=== PATIENT | male | born 1975 | race Two or more races ===

== ENCOUNTER 2023-12-25 10:41 | Emergency (ER) | payer MEDICAID, OTHER ==
[~2023-12-25] VITALS: Ht 167.6 cm; Wt 82.8 kg
[2023-12-25 11:28] LABS: Basophils # (auto) 0 10 ^3/uL (0-0.2); Basophils % (auto) 0.2 % (0.0-2.0); Eosinophils # (auto) 0.1 10 ^3/uL (0-0.8); Eosinophils % (auto) 0.9 % (0.0-7.0); Monocytes # (auto) 0.6 10 ^3/uL (0-1.3); Neutrophils % (auto) 69.9 % (37.0-80.0); Red Blood Cells 3.91 10^6/uL (4.5-5.90); Red Cell Distribution Width 18.6 % (11.8-14.3)
[2023-12-25 11:31] LABS: Hematocrit 31.4 % (41.0-53.0); Hemoglobin 9.8 g/dL (13.5-17.5); Lymphocytes # (auto) 1.4 10 ^3/uL (0.4-5.4); Lymphocytes % (auto) 20.3 % (10.0-50.0); Mean Corpuscular Hemoglobin 25.1 pg (28.0-32.0); Mean Corpuscular Hgb Conc. 31.3 g/dL (32.0-36.0); Mean Corpuscular Volume 80.4 fL (80.0-100.0); Monocytes % (auto) 8.7 % (0.0-12.0); Neutrophils # (auto) 4.8 10 ^3/uL (1.6-8.6); White Blood Cell 6.9 10^3/uL (4.4-10.8)
[2023-12-25 11:45] LABS: INR 0.98 (0.9-1.15); Prothrombin Time 10.4 sec (9.3-11.8)
[2023-12-25 12:05] VITALS: BP 128/87; PULSE 87; RESP 18; TEMP 98.7; O2SAT 98
[2023-12-25] MEDS: LIDOCAINE 1% (LOCAL ANESTH.) PF 5ml SDV ID ONE (15:48)
[2023-12-25] MEDS ORDERED: SODIUM CHLOR 0.9% PF (SALINE LOCK) 10ML VIAL/SYR IV SCH (22:00)
== END 2023-12-25 16:38 | disposition home or self-care (01) ==
LOC: ER 10:41
DX: R56.9 Unspecified convulsions (principal); I10 Essential (primary) hypertension; Z45.2 Encounter for adjustment and management of vascular access device; Z79.899 Other long term (current) drug therapy; Z79.01 Long term (current) use of anticoagulants
CPT/HCPCS: 36415; 36569; 71045; 85025; 85610; 85730; 99285; C1751; J7050

== ENCOUNTER 2024-02-16 15:36 | Emergency (ER) | payer MEDICAID | END 2024-02-16 16:28 | disposition left against medical advice (07) | LOC: ER 15:36 | DX: R56.9 Unspecified convulsions (principal); Z53.21 Procedure and treatment not carried out due to patient leaving prior to being seen by health care provider ==

== ENCOUNTER 2025-02-07 10:16 | Emergency (ER) | payer MEDICAID ==
[~2025-02-07] VITALS: Ht 167.6 cm; Wt 83.0 kg
--- NOTE | 2025-02-07 10:59 | ED.PDOC ---
HPI Comments HPI: Poor Historian. 49-year-old male presents to emergency department for multiple complaints. He has history of chronic abdominal pain that is unchanged however he is here for chest pressure and some mild shortness of breath with underlying anxiety. Symptoms are intermittent. No particular alleviating or precipitating factors. Patient was recently here admitted to the hospital and discharged for port placement of his anterior chest wall. Patient is on Rocephin Patient follows with pain management state that he takes Dilaudid 2 mg 3 times a day. He has missed is Dilaudid for the last week he said because he missed his appointment with his pain management doctor. Patient also receives TPN through his port cath. Past Medical History: Neuropathy, hyperlipidemia, seizure, hypertension, abdominal cancer. Past Surgical History: Abdominal surgery, left ankle surgery, Port-A-Cath placement No known drug allergies. REVIEW OF SYSTEMS: CONSTITUTIONAL: Denies acute: fever, diaphoresis, chills, HEAD: Denies acute: headache, photophobia Eyes: Denies acute: Double vision, vision loss, eye pain, eye discharge. EARS: Denies acute: tinnitus, hearing loss, ear discharge, ear pain, THROAT: Denies acute: sore throat, swelling, difficulty swallowing , pain with swallowing, change in voice. NECK: Denies acute: neck pain, neck swelling, stiff neck. HEART: Denies acute : , palpitations, LUNGS: Denies acute: wheezing, cough, hemoptysis ABDOMEN: Denies acute: abdominal pain, Nausea, Vomiting, diarrhea, melena , hematemesis, hematochezia SKIN: Denies acute: rash, redness, lesions, itchiness. EXTREMITIES: Denies acute: calf pain, numbness, tingling, weakness, denies pain in extremity. Denies acute: Low back pain. Neuro: Denies acute: focal neurological deficit, motor or sensory focal neurological deficit, tremors, seizure like activity, confusion, dizziness, change in mental status, loss of bowel or bladder function, cauda equina like symptoms. : Denies acute: dysuria, hematuria, flank pain, increase in urinary frequency. PSYCH: Denies acute: hallucination, suicidal ideation, homicidal ideation. FEMALE: Denies acute: abnormal vaginal bleeding, foul odor, unusual discharge. PHYSICAL EXAM: General: ----mild to moderate----acute distress, awake and alert. Appears anxious Head: normocephalic, atraumatic. Neck: supple, trachea is midline, no swelling. Throat: Normal phonation. Eyes:, no erythema, no purulent discharge, no proptosis, no icterus. Heart: regular rate, regular rhythm, no significant murmur appreciated. Lungs: no apparent respiratory distress, Able to speak in full sentences. No wheezing, no rhonchi, no crackles. No stridors Clear to auscultation bilaterally. Abdomen: non tender to palpation, non distended, soft, no guarding, no rebound, + bowel sounds. Neuro: Awake, Alert, oriented to name, self, situation, follows commands GCS=15. Speech is normal. Skin: no petechia, no purpura, no cyanosis, non-pale, not jaundice. Lower extremities: --no - Pitting edema no deformity, no focal swelling, no calf TTP. Makes eye contact. moves all four extremities. Face: no apparent facial droop. Ambulating in the ED independently. ED COURSE: DISCLAIMER: This medical document was created using an electronic medical record system with voice recognition software and computerized dictation system. Although this document has been carefully reviewed, there might still be some phonetic and typographical errors. Occasional wrong-word or "sound-alike" substitutions may have occurred due to the inherent limitations of voice recognition software. These areas are purely typographical due to imperfections of the software programs and do not reflect any compromise in the patient's medical care. Please read the chart carefully and recognize, using context, where these substitutions have occurred. Chief Complaint: Shortness of Breath Time Seen by MD: 10:29 Primary Care Provider: unknown Allergies: Coded Allergies: NO KNOWN ALLERGIES (Unverified , 02/07/25) Information Source: Patient Past Medical History PAST MEDICAL HISTORY: Cancer, HTN, Seizures Family History Family History: Unknown Social History Smoker: Non-Smoker Alcohol: Denies ETOH Use Drugs: Denies Drug Use Lives In: Home X-Ray, Labs, Meds, VS Vital Signs Date Time Temp Pulse Resp B/P (MAP) Pulse Ox O2 Delivery O2 Flow Rate FiO2 02/07/25 14:18 108 19 96 Room Air* 0 21 02/07/25 14:18 98.0 108 20 136/93 (107) 98 98.0 02/07/25 14:07 108 20 136/93 02/07/25 12:27 99.2 108 20 138/90 (106) 98 99.2 02/07/25 12:27 108 02/07/25 10:30 99.3 106 20 158/91 (113) 99 99.3 02/07/25 10:30 107 Lab Test 02/07/25 12:39 02/07/25 12:31 02/07/25 11:10 02/07/25 11:09 Range/Units D-Dimer, Quantitative 0.35 0.0-0.49 mg/L FEU Troponin I High Sensitivity < 3 L < 3 L </=54 ng/L White Blood Count 6.2 4.4-10.8 10^3/uL Red Blood Count 4.44 L 4.5-5.90 10^6/uL Hemoglobin 9.1 L 13.5-17.5 g/dL Hematocrit 30.7 L 41.0-53.0 % Mean Corpuscular Volume 69.3 L 80.0-100.0 fL Mean Corpuscular Hemoglobin 20.5 L 28.0-32.0 pg Mean Corpuscular Hemoglobin Concent 29.5 L 32.0-36.0 g/dL Red Cell Distribution Width 18.7 H 11.8-14.3 % Platelet Count 388 140-450 10^3/uL Mean Platelet Volume 8.0 6.9-10.8 fL Neutrophils (%) (Auto) 80.4 H 37.0-80.0 % Lymphocytes (%) (Auto) 13.9 10.0-50.0 % Monocytes (%) (Auto) 5.1 0.0-12.0 % Eosinophils (%) (Auto) 0.5 0.0-7.0 % Basophils (%) (Auto) 0.1 0.0-2.0 % Neutrophils # (Auto) 5.0 1.6-8.6 10 ^3/uL Lymphocytes # (Auto) 0.9 0.4-5.4 10 ^3/uL Monocytes # (Auto) 0.3 0-1.3 10 ^3/uL Eosinophils # (Auto) 0 0-0.8 10 ^3/uL Basophils # (Auto) 0 0-0.2 10 ^3/uL Nucleated Red Blood Cells 0.2 % Lactic Acid Level 1.2 0.4-2.0 mmol/L B-Type Natriuretic Peptide 33.15 0-100 pg/mL Sodium Level 140 136-145 mmol/L Potassium Level 3.4 L 3.5-5.1 mmol/L Chloride Level 109 H 98-107 mmol/L Carbon Dioxide Level 20 20-31 mmol/L Anion Gap 11 5-15 Blood Urea Nitrogen 8 L 9-23 mg/dL Creatinine 0.71 0.700-1.30 mg/dL Glomerular Filtration Rate Calc 113 >90 mL/min BUN/Creatinine Ratio 11.3 10.0-20.0 Serum Glucose 139 H 74-106 mg/dL Calcium Level 10.3 8.7-10.4 mg/dL Total Bilirubin 0.3 0.2-1.0 mg/dL Aspartate Amino Transferase (AST) 12 L 13-40 U/L Alanine Aminotransferase (ALT) 9 7-40 U/L Alkaline Phosphatase 137 H 46-116 U/L Total Protein 7.5 5.7-8.2 g/dL Albumin 5.1 H 3.2-4.8 g/dL Current Medications Medications (Trade) Dose Ordered Sig/Deb Route Start Time Stop Time Status Last Admin Lorazepam (Ativan Inj) 1 mg ONCE ONCE IV 02/07/25 12:45 02/07/25 12:46 DC 02/07/25 13:36 Hydromorphone HCl (Dilaudid Injection) 1 mg ONCE ONCE IV 02/07/25 13:30 02/07/25 14:00 DC 02/07/25 14:07 [place] [id number] Ph: [phone] DIAGNOSTIC IMAGING Diagnostic Imaging Report : [id number] Signed PATIENT: COLLETTE POLO JR ACCT: [id number] UNIT: [id number] : 1975 LOC: ER ROOM / BED: / AGE / SEX: 49 / M ADM STATUS: REG ER SERVICE 1034 ORDERING PHYSICIAN: MARTI BLACKBURN DO PROCEDURE(s): CXRP - CHEST PORTABLE REASON: SOB ORDER NUMBER(s): [id number], ACCESSION NUMBER(s): [id number] EXAM: XY CHEST PORTABLE HISTORY: SOB COMPARISON: XY CHEST PORTABLE on DOS: 12/25/23. For reasons unknown, chest x-ray dated 01/23/2025 was not made available in the PACS system for viewing. TECHNIQUE: Portable AP view of the chest was performed. FINDINGS: There is a right chest port-A-Cath with its tip in the SVC -RA junction. No pneumothorax, consolidative infiltrates, or pulmonary edema. The heart is borderline enlarged. IMPRESSION: No acute intrathoracic process. ATED BY: AILYN ASENCIO MD DICTATED DATE/TIME: 02/07/25 110 SIGNED BY: AILYN ASENCIO MD SIGNED DATE/TIME: 02/07/25 1106 CC: SEPSIS Sepsis Screen Physician Orders [employer] (02/07/25 ) Chest Portable (02/07/25 10:34) Vital Signs Date Time Temp Pulse Resp B/P (MAP) Pulse Ox O2 Delivery O2 Flow Rate FiO2 02/07/25 14:18 108 19 96 Room Air* 0 21 02/07/25 14:18 98.0 108 20 136/93 (107) 98 98.0 02/07/25 14:07 108 20 136/93 02/07/25 12:27 99.2 108 20 138/90 (106) 98 99.2 02/07/25 12:27 108 02/07/25 10:30 99.3 106 20 158/91 (113) 99 99.3 02/07/25 10:30 107 Laboratory Tests Test 02/07/25 11:10 Lactic Acid Level 1.2 mmol/L (0.4-2.0) White Blood Count 6.2 10^3/uL (4.4-10.8) Medications Medications Dose Ordered Sig/Deb Route Start Time Stop Time Status Last Admin Dose Admin Hydromorphone HCl 1 mg ONCE ONCE IV 02/07/25 13:30 02/07/25 14:00 DC 02/07/25 14:07 Lorazepam 1 mg ONCE ONCE IV 02/07/25 12:45 02/07/25 12:46 DC 02/07/25 13:36 Departure 1 Departure Time of Disposition: 14:13 Impression: Primary Impression: Chronic pain syndrome Additional Impressions: Chest pain Anxiety Disposition: 01 HOME / SELF CARE / HOMELESS Condition: Stable Additional Instructions: Additional instructions: You MUST follow-up with your primary care/family doctor in 1 to 2 days. If you are unable to see your primary care/family doctor, please return to our emergency room for re-assessment and re-evaluation in 1 to 2 days. Return to the emergency room here in our facility or to the nearest ER [facility] if your symptoms change or worsen. CONSULTATIONS: you MUST Follow-up for consultation as soon as possible with: --pain management in 1-2 days. Please call for appointment cardiology 1-2 days. Please call for appointment. You MUST call the consultants office yourself to make an appointment. You may need to arrange that through your insurance and/or your primary/family doctor. If you are unable to see the healthcare risk control consultant in 1 to 2 days, you must return to our emergency room (or any other ER of your choice) for re-assessment and re- evaluation. Adequate fluid hydration. Discharged With: Self I personally scribed for MARTI BLACKBURN DO ([email or web address]) on 02/07/25 at 17:03. Electronically submitted by Luis Lackey ([email or web address]). MARTI BLACKBURN DO Feb 07, 2025 10:59
--- NOTE | 2025-02-07 11:09 | DVH ---
EXAM: XY CHEST PORTABLE HISTORY: SOB COMPARISON: XY CHEST PORTABLE on DOS: 12/25/23. For reasons unknown, chest x-ray dated 01/23/2025 was n ot made available in the PACS system for viewing. TECHNIQUE: Portable AP view of the chest was performed. FINDINGS: There is a right chest port-A-Cath with its tip in the SVC -RA junction. No pneumothorax, consolidati ve infiltrates, or pulmonary edema. The heart is borderline enlarged. IMPRESSION: No acute intrathoracic process.
[2025-02-07 11:41] LABS: Hematocrit 30.7 % (41.0-53.0); Hemoglobin 9.1 g/dL (13.5-17.5); Mean Corpuscular Hemoglobin 20.5 pg (28.0-32.0); Mean Corpuscular Volume 69.3 fL (80.0-100.0); Nucleated Red Blood Cells % 0.2 %
[2025-02-07 11:46] LABS: Anion Gap 11 (5-15); BUN/Creatinine Ratio 11.3 (10.0-20.0); Calcium 10.3 mg/dL (8.7-10.4); Sodium 140 mmol/L (136-145); Total Protein 7.5 g/dL (5.7-8.2)
[2025-02-07 11:47] LABS: Bilirubin, Total 0.3 mg/dL (0.2-1.0)
[2025-02-07 11:51] LABS: Alanine Aminotransferase 9 U/L (7-40); Albumin 5.1 g/dL (3.2-4.8); Alkaline Phosphatase 137 U/L (46-116); Blood Urea Nitrogen 8 mg/dL (9-23); Carbon Dioxide 20 mmol/L (20-31); Chloride 109 mmol/L (98-107); Glucose 139 mg/dL (74-106); Potassium 3.4 mmol/L (3.5-5.1)
--- NOTE | 2025-02-07 12:14 | ECG ---
[facility] Test Date: 2025-02-07 Test Time: 10:30:42 Pat Name: COLLETTE POLO Department: ER Room: Gender: M Chief Of Production: EDVIN : 1975 Requested By: MARTI BLACKBURN Order Number: [id number] Reading MD: Measurements Intervals [place] Rate: 107 P: 35 MO: 108 QRS: 56 QRSD: 103 T: -15 QT: 370 QTc: 494 Interpretive Statements Sinus tachycardia Inferior infarct, old Baseline wander in lead(s) II Please click the below link to view image of tracing.
[2025-02-07] MEDS: ASPirin-EC 325mg tab PO ONE (12:45)
[2025-02-07] MEDS: LORazepam 2MG/ML-1ML VIAL IV ONE (13:36)
[2025-02-07] MEDS: HYDROmorphone HCL 2 MG/ML VL/or syr IV ONE (14:07)
[2025-02-07 14:18] VITALS: BP 136/93; PULSE 108; RESP 19; TEMP 98; O2SAT 96
== END 2025-02-07 14:20 | disposition home or self-care (01) ==
LOC: ER 10:16
DX: G89.4 Chronic pain syndrome (principal); R07.89 Other chest pain; F41.9 Anxiety disorder, unspecified; E78.5 Hyperlipidemia, unspecified; R06.02 Shortness of breath
CPT/HCPCS: 36415; 71045; 80053; 82947; 83605; 83880; 84484; 85025; 85379; 93005; 96374; 96375; 99285; J1171; J2060; 82962

== ENCOUNTER → 2025-02-26 | Emergency (ER) | payer MEDICAID ==
[~2025-02-26] VITALS: Ht 167.6 cm; Wt 98.9 kg
[2025-02-26 11:49] VITALS: BP 135/85; PULSE 98; RESP 18; TEMP 98.4; O2SAT 96
== END ==
LOC: ER 11:48
DX: R11.2 Nausea with vomiting, unspecified (principal); Z53.21 Procedure and treatment not carried out due to patient leaving prior to being seen by health care provider
CPT/HCPCS: 82947; 82962

== ENCOUNTER 2025-03-13 11:29 | Emergency (ER) | payer MEDICAID ==
[~2025-03-13] VITALS: Ht 167.6 cm; Wt 78.8 kg
[2025-03-13 11:31] VITALS: BP 117/73; PULSE 89; RESP 13; TEMP 98.5; O2SAT 98
--- NOTE | 2025-03-13 12:27 | ED.PDOC ---
History of Present Illness HPI Comments 49-year-old male presents to the ER with prior medical history of neuropathy, high lipids, seizure, hypertension, abdominal cancer: Surgical history of abdominal surgery, left ankle surgery, Port-A-Cath placement in the chief complaint of general weakness. She reports the when he was discharged last week arranged no nurse sent to the pharmacy. Patient states the he did not have any fluids, seizure medication, antibiotics, or TPN. Patient notes that he is dizzy on has chest pain. Denies chills, fever, N/V/D, SOB. No other associated symptoms, modifiers, recent injuries or sick contacts present at this time. Chief Complaint: General Weakness Time Seen by MD: 12:10 Primary Care Provider: DELORIS Morrow Notes: Nurses Notes, Medications, Allergies Allergies: Coded Allergies: NO KNOWN ALLERGIES (Unverified , 02/07/25) Information Source: Patient Mode of Arrival: Wheelchair Severity: Moderate Timing: Days Duration: Since onset, Days Prehospital treatment: None Past Medical History PAST MEDICAL HISTORY: Cancer (Abdominal), High Lipids, HTN, Seizures Past Medical History (Other): Neuropathy Surgical History (Other): Abdominal surgery, left ankle surgery, Port-A-Cath placement Family History Family History: Reviewed,noncontributory to illness, Unknown Social History Smoker: Non-Smoker Alcohol: Denies ETOH Use Drugs: Denies Drug Use Lives In: Home Constitutional: denies: chills, diaphoresis, fatigue, fever, malaise, sweats, weakness, others EENTM: denies: blurred vision, double vision, ear bleeding, ear discharge, ear drainage, ear pain, ear ringing, eye pain, eye redness, hearing loss, mouth pain, mouth swelling, nasal discharge, nose bleeding, nose congestion, nose pain, photophobia, tearing, throat pain, throat swelling, voice changes, others Respiratory: denies: cough, hemoptysis, orthopnea, SOB at rest, shortness of breath, SOB with excertion, stridor, wheezing, others Cardiovascular: reports: chest pain; denies: dizzy spells, diaphoresis, Dyspnea on exertion, edema, irregular heart beat, left arm pain, lightheadedness, palpitations, PND, syncope, others Gastrointestinal: denies: abdomen distended, abdominal pain, blood streaked bowels, constipated, diarrhea, dysphagia, difficulty swallowing, hematemesis, melena, nausea, poor appetite, poor fluid intake, rectal bleeding, rectal pain, vomiting, others Genitourinary: denies: burning, dysuria, flank pain, frequency, hematuria, incontinence, penile discharge, penile sore, pain, testicle pain, testicle swelling, urgency, others Neurological: reports: dizziness; denies: fainting, headache, left sided nu mbness, left sided weakness, numbness, paresthesia, pre-existing deficit, right sided numbness, right sided weakness, seizure, speech problems, tingling, tremors, weakness, others Musculoskeletal: denies: back pain, gout, joint pain, joint swelling, muscle pain, muscle stiffness, neck pain, others Integumetry: denies: bruises, change in color, change in hair/nails, dryness, laceration, lesions, lumps, rash, wounds, others Allergic/Immunocompromised: denies: Difficulty Healing, Frequent Infections, Hives, Itching, others Hematologic/Lymphatic: denies: anemia, blood clots, easy bleeding, easy bruising, swollen glands, others Endocrine: denies: excessive hunger, excessive sweating, excessive thirst, excessive urination, flushing, intolerance to cold, intolerance to heat, unexpla ined weight gain, unexplained weight loss, others Psychiatric: denies: anxiety, bipolar disorder, depression, hopeless, panic disorder, schizophrenia, sleepless, suicidal, others All Other Systems: Reviewed and Negative Physical Exam General Appearance: Moderate Distress, Normal HEENT: Normal ENT Inspection, Pharynx Normal, TMs Normal Neck: Full Range of Motion, Non-Tender, Normal, Normal Inspection Respiratory: Chest Non-Tender, Lungs Clear, No Accessory Muscle Use, No Respiratory Distress, Normal Breath Sounds Cardiovascular: No Edema, No JVD, No Murmur, No Gallop, Normal Peripheral Pulses, Regular Rate/Rhythm Breast Exam: Deferred Gastrointestinal: No Organomegaly, Non Tender, No Pulsatile Mass, Normal Bowel Sounds, Soft Genitalia: Deferred Pelvic: Deferred Rectal: Deferred Extremities: No calf tenderness, Normal capillary refill, Normal inspection, Normal range of motion, Non-tender, No pedal edema Musculoskeletal : Apperance: Normal Neurologic: Alert, livestock exhibitor II-XII nml as Tested, No Motor Deficits, Normal Affect, Normal Mood, No Sensory Deficits Cerebellar Function: NOT DONE Reflexes: NOT DONE Skin: Dry, Normal Color, Warm Peripheral Pulses: 3+ Radial (R), 3+ Radial (L) Lymphatic: No Adenopathy Was a procedure done? Was a procedure done?: No Differential Dx Considerations may include: Anemia Electrolyte imbalance X-Ray, Labs, Meds, VS Vital Signs Date Time Temp Pulse Resp B/P (MAP) Pulse Ox O2 Delivery O2 Flow Rate FiO2 03/13/25 11:31 98.5 89 13 117/73 98 98.5 Lab Test 03/13/25 12:50 Range/Units White Blood Count 2.6 L 4.4-10.8 10^3/uL Red Blood Count 4.33 L 4.5-5.90 10^6/uL Hemoglobin 8.7 L 13.5-17.5 g/dL Hematocrit 29.2 L 41.0-53.0 % Mean Corpuscular Volume 67.5 L 80.0-100.0 fL Mean Corpuscular Hemoglobin 20.0 L 28.0-32.0 pg Mean Corpuscular Hemoglobin Concent 29.7 L 32.0-36.0 g/dL Red Cell Distribution Width 20.4 H 11.8-14.3 % Platelet Count 287 140-450 10^3/uL Mean Platelet Volume 8.2 6.9-10.8 fL Neutrophils (%) (Auto) 37.0-80.0 % Lymphocytes (%) (Auto) 10.0-50.0 % Monocytes (%) (Auto) 0.0-12.0 % Basophils (%) (Auto) 0.0-2.0 % Neutrophils # (Auto) 1.6-8.6 10 ^3/uL Lymphocytes # (Auto) 0.4-5.4 10 ^3/uL Monocytes # (Auto) 0-1.3 10 ^3/uL Differential Total Cells Counted 100.0 100 Neutrophils % (Manual) 70 37.0-80.0 Band Neutrophils % (Manual) 1 Lymphocytes % (Manual) 19 10.0-50.0 Monocytes % (Manual) 10 0-12 Eosinophils % (Manual) 0 0-7 Basophils % (Manual) 0 0.0-2.0 Metamyelocytes % (manual) 0 Myelocytes % (Manual) 0 Promyelocytes % (Manual) 0 Blast Cells % (Manual) 0 Reactive Lymphocytes 0 Platelet Estimate Adequate Hypochromasia (manual) Moderate Poikilocytosis (manual) Slight Anisocytosis (manual) Moderate Microcytosis Marked Tear Drop Cells Few Ovalocytes Few Sodium Level 140 136-145 mmol/L Potassium Level 3.7 3.5-5.1 mmol/L Chloride Level 106 98-107 mmol/L Carbon Dioxide Level 25 20-31 mmol/L Anion Gap 9 5-15 Blood Urea Nitrogen 6 L 9-23 mg/dL Creatinine 0.59 L 0.700-1.30 mg/dL Glomerular Filtration Rate Calc 120 >90 mL/min BUN/Creatinine Ratio 10.2 10.0-20.0 Serum Glucose 141 H 74-106 mg/dL Calcium Level 9.0 8.7-10.4 mg/dL Total Bilirubin 0.3 0.2-1.0 mg/dL Aspartate Amino Transferase (AST) 18 13-40 U/L Alanine Aminotransferase (ALT) 16 7-40 U/L Alkaline Phosphatase 128 H 46-116 U/L Troponin I High Sensitivity < 3 L </=54 ng/L Total Protein 6.2 5.7-8.2 g/dL Albumin 4.3 3.2-4.8 g/dL Patient alert. Continues to come to the ER. Has a Port-A-Cath. Vitals stable. He was discharged this hospital without TPN. Establish intravenous access. Was given fluids pain Cardiac marker within normal limits. He is anemic. Continue monitoring. Time of 1ST Reevaluation: 12:40 Reevaluation 1ST: Unchanged Patient Education/Counseling: Diagnosis, Treatment, Prognosis Family Education/Counseling: No Family Present SEPSIS Sepsis Screen Date sepsis recognized/suspect: Mar 13, 2025 Time Sepsis recognized/suspect: 1131 Recent Procedure: No On Antibiotic Therapy: No Respiratory Rate >20: No Heart Rate >90: No Temp<36 C (96.8 F) or >38.3 C: No SBP <90 or MAP <65 mmHG: No New Acute Mental Status Change: No Is the patient on CPAP, BIPAP,: No Physician Orders Chest Portable (03/13/25 12:20) Urinalysis (03/13/25 12:20) Vital Signs Date Time Temp Pulse Resp B/P (MAP) Pulse Ox O2 Delivery O2 Flow Rate FiO2 03/13/25 11:31 98.5 89 13 117/73 98 98.5 Laboratory Tests Test 03/13/25 12:50 White Blood Count 2.6 10^3/uL (4.4-10.8) L Departure 1 Departure Time of Disposition: 16:52 Impression: Primary Impression: Symptomatic anemia Additional Impression: On total parenteral nutrition Disposition: 09 ADMITTED INPATIENT Admit to: Med Surg Condition: Guarded Critical Care Note Critical Care Time?: No Stability Stability form required: No Heart Score Heart Score: Heart Score Response (Comments) Value History N/A 0 EKG N/A 0 Age N/A 0 Risk Factors N/A 0 Troponin N/A 0 Total 0 I personally scribed for BRIAN VICK MD ([email or web address]) on 03/13/25 at 12:27. Electronically submitted by Oneil Borja ([email or web address]). BRIAN VICK MD Mar 13, 2025 12:27
[2025-03-13 13:06] LABS: Hemoglobin 8.7 g/dL (13.5-17.5); Mean Corpuscular Hemoglobin 20.0 pg (28.0-32.0)
--- NOTE | 2025-03-13 13:13 | DVH ---
INDICATION: sob TECHNIQUE: Frontal view of the chest. COMPARISON: XY CHEST PORTABLE on DOS: 02/07/25, XY CHEST PORTABLE on DOS: 12/25/23 FINDINGS: Right chest port with tip in the cavoatrial junction. The heart and mediastinal contours are grossly unremarkable. There is no evidence of pleural disease. The lungs are clear. The bony structures o f the chest are intact without fracture. IMPRESSION: 1. No evidence of acute disease.
[2025-03-13 13:17] LABS: Alanine Aminotransferase 16 U/L (7-40); Albumin 4.3 g/dL (3.2-4.8); Anion Gap 9 (5-15); BUN/Creatinine Ratio 10.2 (10.0-20.0); Calcium 9.0 mg/dL (8.7-10.4); Carbon Dioxide 25 mmol/L (20-31); Chloride 106 mmol/L (98-107); Hematocrit 29.2 % (41.0-53.0); Mean Corpuscular Volume 67.5 fL (80.0-100.0); Potassium 3.7 mmol/L (3.5-5.1); Sodium 140 mmol/L (136-145); Total Protein 6.2 g/dL (5.7-8.2)
[2025-03-13 13:18] LABS: Alkaline Phosphatase 128 U/L (46-116); Bilirubin, Total 0.3 mg/dL (0.2-1.0); Blood Urea Nitrogen 6 mg/dL (9-23); Glucose 141 mg/dL (74-106)
[2025-03-13 13:40] LABS: Anisocytosis Moderate; Ovalocytes FEW; Tear Drop Cells FEW; Total Cells Counted 100.0 (100)
[2025-03-13 18:44] LABS: Urine Budding Yeast OCCASIONAL /hpf (None Seen); Urine Protein, UAD 1+ (Negative)
== END 2025-03-13 22:11 | disposition left against medical advice (07) ==
LOC: ER 11:29
DX: D64.9 Anemia, unspecified (principal); E78.5 Hyperlipidemia, unspecified; I10 Essential (primary) hypertension; Z85.9 Personal history of malignant neoplasm, unspecified
CPT/HCPCS: 36415; 71045; 80053; 81001; 84484; 85007; 85027

== ENCOUNTER 2025-03-14 10:44 | Inpatient (IN) | payer MEDICAID ==
[~2025-03-14] VITALS: Ht 167.6 cm; Wt 86.0 kg
[2025-03-14 11:06] VITALS: PULSE 77
--- NOTE | 2025-03-14 11:16 | ED.PDOC ---
HPI Comments 49-year-old male with a history of hypertension, diabetes, hyperlipidemia, seizures, and cancer, was brought in by emergency services with a chief complaint of a seizure, with the associated abdominal pain, and chest pressure. Patient states that he presented to [facility] ED yesterday for a seizure, but notes he went to go put in his car when he spontaneously fell asleep, and was told he was taken off the tracker so he proceeded to leave. Patient notes that he proceeded to have another seizure this morning. No oral trauma or incontinence noted, patient is tender to have had a blood sugar of 82. Patient does not know that he has been noncompliant with his Keppra medication with the last five days, due to him running other face medication. No other associated symptoms, modifiers at this time. Chief Complaint: Seizure Time Seen by MD: 11:12 Primary Care Provider: DELORIS Morrow Notes: Nurses Notes, Director Nursery School Notes, Medications, Allergies Allergies: Coded Allergies: NO KNOWN ALLERGIES (Unverified , 02/07/25) Information Source: Patient, Emergency Med Personnel Mode of Arrival: EMS Severity: Moderate Timing: Days Duration: Since onset, Days Prehospital treatment: 12 Lead EKG, Accucheck, Gate Services Supervisor Location: Chest (L) Radiation: No Radiation Quality: Squeezing Onset: At Rest Cardiac Risk Factors: HTN PE Risk Factors: None History of: None Modifying Factors: Exertion Associated Signs and Symptoms: None Past Medical History PAST MEDICAL HISTORY: Cancer, High Lipids, HTN, Seizures Family History Family History: Reviewed,noncontributory to illness, Unknown Social History Smoker: Non-Smoker Alcohol: Denies ETOH Use Drugs: Denies Drug Use Lives In: Home Constitutional: denies: chills, diaphoresis, fatigue, fever, malaise, sweats, weakness, others EENTM: denies: blurred vision, double vision, ear bleeding, ear discharge, ear drainage, ear pain, ear ringing, eye pain, eye redness, hearing loss, mouth pain, mouth swelling, nasal discharge, nose bleeding, nose congestion, nose pain, photophobia, tearing, throat pain, throat swelling, voice changes, others Respiratory: denies: cough, hemoptysis, orthopnea, SOB at rest, shortness of breath, SOB with excertion, stridor, wheezing, others Cardiovascular: reports: chest pain; denies: dizzy spells, diaphoresis, Dyspnea on exertion, edema, irregular heart beat, left arm pain, lightheadedness, palpitations, PND, syncope, others Gastrointestinal: reports: abdominal pain; denies: abdomen distended, blood streaked bowels, constipated, diarrhea, dysphagia, difficulty swallowing, hematemesis, melena, nausea, poor appetite, poor fluid intake, rectal bleeding, rectal pain, vomiting, others Genitourinary: denies: burning, dysuria, flank pain, frequency, hematuria, incontinence, penile discharge, penile sore, pain, testicle pain, testicle swelling, urgency, others Neurological: reports: seizure; denies: dizziness, fainting, headache, left sided numbness, left sided weakness, numbness, paresthesia, pre-existing defici t, right sided numbness, right sided weakness, speech problems, tingling, tremors, weakness, others Musculoskeletal: denies: back pain, gout, joint pain, joint swelling, muscle pain, muscle stiffness, neck pain, others Integumetry: denies: bruises, change in color, change in hair/nails, dryness, laceration, lesions, lumps, rash, wounds, others Allergic/Immunocompromised: denies: Difficulty Healing, Frequent Infections, Hives, Itching, others Hematologic/Lymphatic: denies: anemia, blood clots, easy bleeding, easy bruising, swollen glands, others Endocrine: denies: excessive hunger, excessive sweating, excessive thirst, excessive urination, flushing, intolerance to cold, intolerance to heat, unexplained weight gain, unexplained weight loss, others Psychiatric: denies: anxiety, bipolar disorder, depression, hopeless, panic disorder, schizophrenia, sleepless, suicidal, others All Other Systems: Reviewed and Negative Physical Exam General Appearance: Moderate Distress, Normal HEENT: Normal ENT Inspection, Pharynx Normal, TMs Normal Neck: Full Range of Motion, Non-Tender, Normal, Normal Inspection Respiratory: Chest Non-Tender, Lungs Clear, No Accessory Muscle Use, No Respiratory Distress, Normal Breath Sounds Cardiovascular: No Edema, No JVD, No Murmur, No Gallop, Normal Peripheral Pulses, Regular Rate/Rhythm Breast Exam: Deferred Gastrointestinal: No Organomegaly, Non Tender, No Pulsatile Mass, Normal Bowel Sounds, Soft Genitalia: Deferred Pelvic: Deferred Rectal: Deferred Extremities: No calf tenderness, Normal capillary refill, Normal inspection, Normal range of motion, Non-tender, No pedal edema Musculoskeletal : Apperance: Normal Neurologic: Alert, 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 Was a procedure done?: No CP Differential Dx Differential Diagnosis: A-fib, A-Flutter, Angina, Anxiety / Panic Attack, Atrial Dysrhythmia, Electrolyte Disorder, Heart Failure, Pulmonary Embolus Differential Diagnosis: CHF, HTN Encephalopathy Differential Diagnosis: Angina, Cholelithiasis, Esophageal reflux/spasm, Gastr itis, Pneumonia, Pulmonary Embolus X-Ray, Labs, Meds, VS Vital Signs Date Time Temp Pulse Resp B/P (MAP) Pulse Ox O2 Delivery O2 Flow Rate FiO2 03/14/25 11:06 99.1 77 18 123/66 (85) 97 99.1 03/14/25 11:06 77 03/14/25 10:56 80 03/14/25 10:47 99.1 78 18 124/76 97 99.1 Lab Test 03/14/25 11:40 Range/Units White Blood Count 2.9 L 4.4-10.8 10^3/uL Red Blood Count 3.90 L 4.5-5.90 10^6/uL Hemoglobin 7.7 L 13.5-17.5 g/dL Hematocrit 26.2 #L 41.0-53.0 % Mean Corpuscular Volume 67.1 L 80.0-100.0 fL Mean Corpuscular Hemoglobin 19.7 L 28.0-32.0 pg Mean Corpuscular Hemoglobin Concent 29.4 L 32.0-36.0 g/dL Red Cell Distribution Width 20.1 H 11.8-14.3 % Platelet Count 264 140-450 10^3/uL Mean Platelet Volume 7.9 6.9-10.8 fL Neutrophils (%) (Auto) 59.6 37.0-80.0 % Lymphocytes (%) (Auto) 25.2 10.0-50.0 % Monocytes (%) (Auto) 12.9 H 0.0-12.0 % Eosinophils (%) (Auto) 1.9 0.0-7.0 % Basophils (%) (Auto) 0.4 0.0-2.0 % Neutrophils # (Auto) 1.8 1.6-8.6 10 ^3/uL Lymphocytes # (Auto) 0.7 0.4-5.4 10 ^3/uL Monocytes # (Auto) 0.4 0-1.3 10 ^3/uL Eosinophils # (Auto) 0.1 0-0.8 10 ^3/uL Basophils # (Auto) 0 0-0.2 10 ^3/uL Nucleated Red Blood Cells 0.1 % Sodium Level Pending Potassium Level Pending Chloride Level Pending Carbon Dioxide Level Pending Anion Gap Pending Blood Urea Nitrogen Pending Creatinine Pending Glomerular Filtration Rate Calc Pending BUN/Creatinine Ratio Pending Serum Glucose Pending Calcium Level Pending Patient alert. Complaining of generalized weakness. Was seen here yesterday for same condition. Vitals stable. Apparently had a seizure witnessed by paramedics. Has a Port-A-Cath. He does not have his TPN. He is not a reliable patient. Continue to monitor. Time of 1ST Reevaluation: 11:43 Reevaluation 1ST: Unchanged Patient Education/Counseling: Diagnosis, Treatment, Need For Follow Up Family Education/Counseling: No Family Present SEPSIS Sepsis Screen Date sepsis recognized/suspect: Mar 14, 2025 Time Sepsis recognized/suspect: 104 Recent Procedure: No On Antibiotic Therapy: No Respiratory Rate >20: No Heart Rate >90: No Temp<36 C (96.8 F) or >38.3 C: No SBP <90 or MAP <65 mmHG: No New Acute Mental Status Change: No Is the patient on CPAP, BIPAP,: No Physician Orders Electrocardigram (03/14/25 11:12) Basic Metabolic Panel (03/14/25 11:23) Sodium Chloride 0.9% (03/14/25 11:30) Sodium Chloride 0.9% (03/14/25 11:30) Hydrocodone-Acet 10/325mg Tab ([place] 10/ (03/14/25 12:15) Levetiracetam Ivpb Keppra (03/14/25 12:15) Vital Signs Date Time Temp Pulse Resp B/P (MAP) Pulse Ox O2 Delivery O2 Flow Rate FiO2 03/14/25 11:06 99.1 77 18 123/66 (85) 97 99.1 03/14/25 11:06 77 03/14/25 10:56 80 03/14/25 10:47 99.1 78 18 124/76 97 99.1 Laboratory Tests Test 03/14/25 11:40 White Blood Count 2.9 10^3/uL (4.4-10.8) L Departure 1 Departure Time of Disposition: 11:57 Impression: Primary Impression: Seizure Additional Impressions: Symptomatic anemia On total parenteral nutrition Disposition: ADMITTED INPATIENT Admit to: Med Surg Condition: Guarded Critical Care Note Critical Care Time?: No Stability Stability form required: No Heart Score Heart Score: Heart Score Response (Comments) Value History N/A 0 EKG N/A 0 Age N/A 0 Risk Factors N/A 0 Troponin N/A 0 Total 0 I personally scribed for BRIAN VICK MD ([email or web address]) on 03/14/25 at 11:16. Electronically submitted by Eduardo Pedraza ([email or web address]). BRIAN VICK MD Mar 14, 2025 11:16
[2025-03-14 11:53] LABS: Hematocrit 26.2 % (41.0-53.0); Nucleated Red Blood Cells % 0.1 %
[2025-03-14 11:55] LABS: Hemoglobin 7.7 g/dL (13.5-17.5); Mean Corpuscular Hemoglobin 19.7 pg (28.0-32.0); Mean Corpuscular Volume 67.1 fL (80.0-100.0)
[2025-03-14 11:57] LABS: Potassium 3.6 mmol/L (3.5-5.1); Sodium 142 mmol/L (136-145)
[2025-03-14 11:58] LABS: Anion Gap 7 (5-15); Carbon Dioxide 26 mmol/L (20-31)
[2025-03-14 12:03] LABS: BUN/Creatinine Ratio 13.0 (10.0-20.0); Glucose 91 mg/dL (74-106)
[2025-03-14 12:13] LABS: Blood Urea Nitrogen 7 mg/dL (9-23); Calcium 8.6 mg/dL (8.7-10.4); Chloride 109 mmol/L (98-107)
[2025-03-14] MEDS: levETIRAcetam 1000 mg/100ml 100 ML IV ONE (12:42)
[2025-03-14] MEDS: LORazepam 2MG/ML-1ML VIAL IV ONE (12:42)
[2025-03-14] MEDS: HYDROcodone-ACET 10/325MG TAB PO ONE (12:42)
[2025-03-14] MEDS: SODIUM CHLORIDE 0.9% 1,000 ML IV ONE ×2 (12:43)
[2025-03-14 13:20] VITALS: PULSE 76; RESP 20; O2SAT 97
--- NOTE | 2025-03-14 16:42 | DVHHP2 ---
Admitting Diagnosis: Seizure History of Present Illness 49-year-old male with a history of hypertension, diabetes, hyperlipidemia, seizures, and cancer, was brought in by emergency services with a chief complaint of a seizure, with the associated abdominal pain, and chest pressure. Patient states that [facility] for a [facility], but notes he went to go put in his car when he spontaneously fell asleep, and was told he was taken off the tracker so he proceeded to leave. Patient notes that he proceeded to have another seizure this morning. No oral trauma or incontinence noted, patient is tender to have had a blood sugar of 82. Patient does not know that he PAST MEDICAL HISTORY: Cancer, High Lipids, HTN, Seizures Family History Family History: Reviewed,noncontributory to illness, Unknown Social History Smoker: Non-Smoker Alcohol: Denies ETOH Use Drugs: Denies Drug Use Lives In: Home Allergies: Coded Allergies: NO KNOWN ALLERGIES (Unverified , 02/07/25) Current Medications Current Medications Medications (Trade) Dose Ordered Sig/Deb Route PRN Reason Start Time Stop Time Status Last Admin Levetiracetam 100 ml @ 400 mls/hr BID IV 03/14/25 22:00 UNV Sodium Chloride (Saline Lock Ns) 10 ml Q8HR IV 03/14/25 22:00 UNV Docusate Sodium (Colace Capsule) 100 mg BIDPRN PRN PO FOR CONSTIPATION 03/14/25 19:45 UNV Hydromorphone HCl (Dilaudid Injection) 2 mg Q4HP PRN IV SEVERE PAIN (7-10 PAIN SCALE) 03/14/25 19:45 UNV Ondansetron HCl (Zofran) 4 mg Q4HP PRN IV NAUSEA / VOMITING 03/14/25 19:45 UNV Enoxaparin Sodium (Lovenox) 40 mg DAILY SC 03/15/25 10:00 UNV Vancomycin HCl 0 ml @ 0 mls/hr UD IV 03/14/25 19:45 UNV Vital Signs Vital Signs Date Time Temp Pulse Resp B/P (MAP) Pulse Ox O2 Delivery O2 Flow Rate FiO2 03/14/25 15:00 76 20 113/65 (81) 97 03/14/25 13:20 Room Air* 0 21 03/14/25 11:06 99.1 99.1 Physical Exam Generally-41 years old male, well nourished well developed. No apparent distress HEENT-atraumatic normocephalic Heart-regular rate and rhythm Lungs clear to auscultate . Right upper chest has TPN Abdomen soft moderate tender, nondistended Musculoskeletal-no edema cyanosis Neuro-AO x3, no focal deficits SEPSIS Sepsis Screen Date sepsis recognized/suspect: Mar 14, 2025 Time Sepsis recognized/suspect: 113 Recent Procedure: No On Antibiotic Therapy: No Respiratory Rate >20: No Heart Rate >90: Yes Temp<36 C (96.8 F) or >38.3 C: No SBP <90 or MAP <65 mmHG: No New Acute Mental Status Change: No Is the patient on CPAP, BIPAP,: No Physician Orders Electrocardigram (03/14/25 11:12) * Neurology Consult (03/14/25 16:46) Neuro Checks Per Unit Protocol (03/14/25 16:46) Levetiracetam 1500 Mg/100ml (Levetiracet (03/14/25 22:00) Admit (03/14/25 19:34) Code Status (03/14/25 19:34) Vital Signs .PER UNIT PROTOCOL (03/14/25 19:34) Review Orders With Adm.Md (03/14/25 19:34) Encourage Activity As Tolerate (03/14/25 19:34) Sodium Chloride Lock (Saline Lock Ns) (03/14/25 22:00) Notify Md Of Changes From Base (03/14/25 19:34) Advance Directive (03/14/25 19:34) Patient Condition (03/14/25 19:34) Allergies (03/14/25 19:34) Hydromorphone Injection (Dilaudid Inject (03/14/25 19:45) Ondansetron Hcl (Zofran) (03/14/25 19:45) Enoxaparin Sodium (Lovenox) (03/15/25 10:00) Vancomycin Per Pharmacy (03/14/25 19:45) Docusate Sodium Capsule (Colace Capsule) (03/14/25 19:45) * Dietary Consult (03/14/25 19:37) Complete Blood Count (03/15/25 05:00) Complete Blood Count (03/16/25 05:00) Complete Blood Count (03/17/25 05:00) Complete Blood Count (03/18/25 05:00) Complete Blood Count (03/19/25 05:00) Comprehensive Metabolic Panel (03/15/25 05:00) Comprehensive Metabolic Panel (03/16/25 05:00) Comprehensive Metabolic Panel (03/17/25 05:00) Comprehensive Metabolic Panel (03/18/25 05:00) Comprehensive Metabolic Panel (03/19/25 05:00) Vital Signs Date Time Temp Pulse Resp B/P (MAP) Pulse Ox O2 Delivery O2 Flow Rate FiO2 03/14/25 15:00 76 20 113/65 (81) 97 03/14/25 13:20 76 20 97 Room Air* 0 21 03/14/25 13:00 80 11 110/67 (81) 99 03/14/25 11:06 99.1 77 18 123/66 (85) 97 99.1 03/14/25 11:06 77 03/14/25 10:56 80 03/14/25 10:47 99.1 78 18 124/76 97 99.1 Laboratory Tests Test 03/14/25 11:40 White Blood Count 2.9 10^3/uL (4.4-10.8) L Medications Medications Dose Ordered Sig/Deb Route Start Time Stop Time Status Last Admin Dose Admin Acetaminophen/ Hydrocodone Bitart 1 tab ONCE ONCE PO 03/14/25 12:15 03/14/25 12:16 DC 03/14/25 12:42 Levetiracetam 100 ml @ 400 mls/hr ONCE ONCE IV 03/14/25 12:15 03/14/25 12:29 DC 03/14/25 12:42 Lorazepam 1 mg ONCE ONCE IV 03/14/25 12:00 03/14/25 12:01 DC 03/14/25 12:42 Sodium Chloride 1,000 ml @ 150 mls/hr Q6H40M ONCE IV 03/14/25 11:30 03/14/25 18:09 DC 03/14/25 12:43 Sodium Chloride 1,000 ml @ 1,000 mls/hr Q1H ONCE IV 03/14/25 11:30 03/14/25 12:29 DC 03/14/25 12:43 Results Labs Test 03/14/25 11:40 Range/Units White Blood Count 2.9 L 4.4-10.8 10^3/uL Red Blood Count 3.90 L 4.5-5.90 10^6/uL Hemoglobin 7.7 L 13.5-17.5 g/dL Hematocrit 26.2 #L 41.0-53.0 % Mean Corpuscular Volume 67.1 L 80.0-100.0 fL Mean Corpuscular Hemoglobin 19.7 L 28.0-32.0 pg Mean Corpuscular Hemoglobin Concent 29.4 L 32.0-36.0 g/dL Red Cell Distribution Width 20.1 H 11.8-14.3 % Platelet Count 264 140-450 10^3/uL Mean Platelet Volume 7.9 6.9-10.8 fL Neutrophils (%) (Auto) 59.6 37.0-80.0 % Lymphocytes (%) (Auto) 25.2 10.0-50.0 % Monocytes (%) (Auto) 12.9 H 0.0-12.0 % Eosinophils (%) (Auto) 1.9 0.0-7.0 % Basophils (%) (Auto) 0.4 0.0-2.0 % Neutrophils # (Auto) 1.8 1.6-8.6 10 ^3/uL Lymphocytes # (Auto) 0.7 0.4-5.4 10 ^3/uL Monocytes # (Auto) 0.4 0-1.3 10 ^3/uL Eosinophils # (Auto) 0.1 0-0.8 10 ^3/uL Basophils # (Auto) 0 0-0.2 10 ^3/uL Nucleated Red Blood Cells 0.1 % Sodium Level 142 136-145 mmol/L Potassium Level 3.6 3.5-5.1 mmol/L Chloride Level 109 H 98-107 mmol/L Carbon Dioxide Level 26 20-31 mmol/L Anion Gap 7 5-15 Blood Urea Nitrogen 7 L 9-23 mg/dL Creatinine 0.54 L 0.700-1.30 mg/dL Glomerular Filtration Rate Calc 123 >90 mL/min BUN/Creatinine Ratio 13.0 10.0-20.0 Serum Glucose 91 74-106 mg/dL Calcium Level 8.6 L 8.7-10.4 mg/dL Primary Diagnosis Seizure Microcytic anemia Plan Patient says that he had a gastric cancer unable to tolerate any p.o.. Patient is taking PPI for diet Nutrition consult Neurology consult CT head to rule out acute intracranial hemorrhage Neuro check per floor protocol Resume Keppra 500 mg b.i.d. Patient takes Dilaudid 2 mg p.o. convert to IV Patient says he takes vancomycin IV. He states he has been taking it for a while I need to resume. Patient unclear which etiology denies any osteomyelitis. Recommend to follow the patient when patient mental status improved. will resume vancomyicn dosing per pharmacy for now Full code Lovenox for DVT prophylaxis PPI for GI prophylaxis Plan discussed with: Patient Problems List: (1) Seizure Status: Acute (2) Chronic pain syndrome Status: Acute (3) S/P PICC central line placement Status: Acute Date of Service: Mar 14, 2025 Billing Provider: VIOLETTE WARD MD Common Visit Codes: 58556-BSSUMRE INP/OBS CARE (MOD) VIOLETTE WARD MD Mar 14, 2025 16:41
[2025-03-14 19:45] VITALS: O2SAT 97
[2025-03-14] MEDS ORDERED: DOCUSATE SOD 100 MG CAP PO PRN (19:45)
[2025-03-14] MEDS ORDERED: VANCOMYCIN PER PHARMACY 0 MG IV SCH (19:45)
[2025-03-14] MEDS ORDERED: ONDANSETRON HCL 4 MG/2 ML VIAL IV PRN (19:45)
[2025-03-14] MEDS ORDERED: HYDROmorphone HCL 2 MG/ML VL/or syr IV PRN (19:45)
[2025-03-14] MEDS ORDERED: levETIRAcetam 1500 mg/100ml 100 ML IV SCH (22:00)
[2025-03-14] MEDS ORDERED: VANCOMYCIN 1GM/250ML KIT 250 ML IV SCH (22:15)
[2025-03-14] MEDS: SODIUM CHLOR 0.9% PF (SALINE LOCK) 10ML VIAL/SYR IV SCH (23:28)
[2025-03-15 03:48] VITALS: BP 111/69; PULSE 66; RESP 18; TEMP 98.2; O2SAT 99
[2025-03-15] MEDS ORDERED: COLC1CAP PO (04:02)
[2025-03-15] MEDS ORDERED: GLUC1INJ (04:02)
[2025-03-15] MEDS ORDERED: TRAZ1TAB12 PO (04:02)
[2025-03-15] MEDS ORDERED: FERR-7 PO (04:02)
[2025-03-15] MEDS ORDERED: LISI-287 PO (04:02)
[2025-03-15] MEDS ORDERED: FURO40TA4 PO (04:02)
[2025-03-15] MEDS ORDERED: SEMA2INJ3 SC (04:02)
[2025-03-15] MEDS ORDERED: ONDA-188 PO (04:02)
[2025-03-15] MEDS ORDERED: QUET1TAB11 PO (04:02)
[2025-03-15] MEDS ORDERED: VENL1TAB99 PO (04:02)
[2025-03-15] MEDS ORDERED: ASPI81CH59 PO (04:02)
[2025-03-15] MEDS ORDERED: ALBU108A5 INH (04:02)
[2025-03-15] MEDS ORDERED: [UNRECOGNIZED DRUG - CODE] IV (04:02)
[2025-03-15] MEDS ORDERED: GABA800T97 PO (04:02)
[2025-03-15] MEDS ORDERED: [UNRECOGNIZED DRUG - CODE] IV (04:02)
[2025-03-15] MEDS ORDERED: CYA100I SC (04:02)
[2025-03-15] MEDS ORDERED: SENN-58 PO (04:02)
[2025-03-15] MEDS ORDERED: HYDR4TAB3 PO (04:04)
[2025-03-15] MEDS ORDERED: ATOR20TA50 PO (04:05)
[2025-03-15] MEDS: VANCOMYCIN 1GM/250ML KIT 250 ML IV SCH (06:12)
[2025-03-15 07:32] LABS: Nucleated Red Blood Cells % 0.1 %
[2025-03-15 07:36] LABS: Hematocrit 26.5 % (41.0-53.0); Hemoglobin 7.8 g/dL (13.5-17.5); Mean Corpuscular Hemoglobin 20.1 pg (28.0-32.0); Mean Corpuscular Volume 67.9 fL (80.0-100.0)
[2025-03-15 07:50] LABS: Alanine Aminotransferase 12 U/L (7-40); Albumin 3.9 g/dL (3.2-4.8); Alkaline Phosphatase 107 U/L (46-116); Anion Gap 9 (5-15); Calcium 8.8 mg/dL (8.7-10.4); Carbon Dioxide 24 mmol/L (20-31); Glucose 87 mg/dL (74-106); Sodium 144 mmol/L (136-145)
[2025-03-15 07:59] LABS: BUN/Creatinine Ratio 8.8 (10.0-20.0); Bilirubin, Total 0.2 mg/dL (0.2-1.0); Blood Urea Nitrogen < 5 mg/dL (9-23); Chloride 111 mmol/L (98-107); Potassium 3.5 mmol/L (3.5-5.1); Total Protein 5.7 g/dL (5.7-8.2)
[2025-03-15 09:00] VITALS: BP 110/68; PULSE 69; RESP 18; TEMP 98.1; O2SAT 99
[2025-03-15] MEDS: ENOXAPARIN SOD 40 MG/0.4 ML SYRINGE SC SCH (10:00)
[2025-03-15] MEDS ORDERED: VANCOMYCIN 1GM/250ML KIT 250 ML IV SCH (14:00)
--- NOTE | 2025-03-15 18:31 | DVHDS2 ---
Discharge Summary Date of Admission Mar 14, 2025 at 19:34 Date of Discharge: Mar 15, 2025 Labs/Diagnostic Data: Laboratory Results Test 03/15/25 06:40 White Blood Count 3.2 10^3/uL (4.4-10.8) Red Blood Count 3.90 10^6/uL (4.5-5.90) Hemoglobin 7.8 g/dL (13.5-17.5) Hematocrit 26.5 % (41.0-53.0) Mean Corpuscular Volume 67.9 fL (80.0-100.0) Mean Corpuscular Hemoglobin 20.1 pg (28.0-32.0) Mean Corpuscular Hemoglobin Concent 29.6 g/dL (32.0-36.0) Red Cell Distribution Width 20.5 % (11.8-14.3) Platelet Count 260 10^3/uL (140-450) Mean Platelet Volume 8.4 fL (6.9-10.8) Neutrophils (%) (Auto) 50.7 % (37.0-80.0) Lymphocytes (%) (Auto) 35.2 % (10.0-50.0) Monocytes (%) (Auto) 11.2 % (0.0-12.0) Eosinophils (%) (Auto) 2.4 % (0.0-7.0) Basophils (%) (Auto) 0.5 % (0.0-2.0) Neutrophils # (Auto) 1.6 10 ^3/uL (1.6-8.6) Lymphocytes # (Auto) 1.1 10 ^3/uL (0.4-5.4) Monocytes # (Auto) 0.4 10 ^3/uL (0-1.3) Eosinophils # (Auto) 0.1 10 ^3/uL (0-0.8) Basophils # (Auto) 0 10 ^3/uL (0-0.2) Nucleated Red Blood Cells 0.1 % Sodium Level 144 mmol/L (136-145) Potassium Level 3.5 mmol/L (3.5-5.1) Chloride Level 111 mmol/L (98-107) Carbon Dioxide Level 24 mmol/L (20-31) Anion Gap 9 (5-15) Blood Urea Nitrogen < 5 mg/dL (9-23) Creatinine 0.57 mg/dL (0.700-1.30) Glomerular Filtration Rate Calc 121 mL/min (>90) BUN/Creatinine Ratio 8.8 (10.0-20.0) Serum Glucose 87 mg/dL (74-106) Calcium Level 8.8 mg/dL (8.7-10.4) Total Bilirubin 0.2 mg/dL (0.2-1.0) Aspartate Amino Transferase (AST) 15 U/L (13-40) Alanine Aminotransferase (ALT) 12 U/L (7-40) Alkaline Phosphatase 107 U/L (46-116) Total Protein 5.7 g/dL (5.7-8.2) Albumin 3.9 g/dL (3.2-4.8) Other Laboratory Tests 03/15/25 06:40 Brief Hx & Hospital Course: 49-year-old male with a history of hypertension, diabetes, hyperlipidemia, seizures, and gastric cancer, was brought in by emergency services with a chief complaint of a seizure, with the associated abdominal pain, and chest pressure. Patient states that he presented to [facility] ED yesterday for a seizure, but notes he went to go put in his car when he spontaneously fell asleep, and was told he was taken off the tracker so he proceeded to leave. Patient notes that he proceeded to have another seizure this morning. Patient was assigned to me today but patient left against medical advice before completion of workup and treatment and before I came to see the patient. Condition at Discharge: Undetermined Final Diagnosis/Problems List Seizures Discharge Disposition: AMA SNF Discharge Will this Physician continue t: No Discharge Instruct/Medications Scheduled Aspirin (Aspirin Low Dose), 81 MG PO DAILY, (Reported) Atorvastatin Calcium (Atorvastatin Calcium), 20 MG PO HS, (Reported) Colchicine (Colchicine), 0.6 MG PO DAILY, (Reported) Ferrous Sulfate (Iron), 325 MG PO BID, (Reported) Furosemide (Furosemide), 1 TAB PO BID, (Reported) Gabapentin (Gabapentin), 1,200 MG PO TID, (Reported) Levetiracetam In Sodium Chlori (Levetiracetam), 1,500 MG IV BID, (Reported) Lisinopril & Hydrochlorothiazi (Lisinopril/Hydrochlorothi), 1 TAB PO TID, (Reported) Quetiapine Fumerate (Quetiapine Fumarate), 1-2 TAB PO HS, (Reported) Semaglutide (Ozempic), 1 MG SC QWEEKLY, (Reported) Senna (Senokot), 8.6 MG PO BID, (Reported) Trazodone Hcl (Trazodone Hcl), 1 TAB PO QHSP, (Reported) Vancomycin HCl (Vancomycin Hydrochloride), 300 ML IV BID, (Reported) Venlafaxine Hydrochloride (Venlafaxine Hcl), 1 TAB PO DAILY, (Reported) Scheduled PRN Albuterol Sulfate (Albuterol Sulfate Hfa), 2 PUFF INH for SHORTNESS OF BREATH, (Reported) Glucagon (Gvoke Pfs), UD PRN for HYPOGLYCEMIA, (Reported) Hydromorphone Hcl (Hydromorphone Hcl), 1 TAB PO QID PRN for PAIN SCALE 7 THRU 10, (Reported) Ondansetron HCl (Ondansetron Hydrochloride), 1-2 TAB PO BIDPRN PRN for NAUSEA / VOMITING, (Reported) Miscellaneous Medications Vitamin B12 (Vitamin B-12), 1 ML SC, (Reported) Discharge Statement: "Patient was advised to return to the ER or call 911 if any headaches, dizziness, shortness of breath, chest pain, abdominal pain, bleeding, fevers, or worsening of medical condition. Patient was counseled about treatment plan, medications, possible side effects, patientverbalized understanding. All questions were answered to the best of my ability. This discharge took greater then 30 minutes in planning, reviewing documentation, counseling the patient, and discussing with other team members." ASSESSMENT ASSESSMENT Assessment Date of Service: Mar 15, 2025 Billing Provider: RONNI ROSALES MD Common Visit Codes: 83872-CBD/OBS DISCH DAY <30MIN RONNI ROSALES MD Mar 15, 2025 18:31
--- NOTE | 2025-03-17 08:23 | ECG ---
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
== END 2025-03-15 18:50 | disposition left against medical advice (07) | DRG 53 ==
LOC: EDBD 10:44 → ER 10:44 → OVERFLOW 19:34
PROVIDERS: ADMIT Internal Medicine; ATTEND Internal Medicine
DX: G40.409 Other generalized epilepsy and epileptic syndromes, not intractable, without status epilepticus (principal); D50.9 Iron deficiency anemia, unspecified; E11.9 Type 2 diabetes mellitus without complications; G89.4 Chronic pain syndrome; E78.5 Hyperlipidemia, unspecified; Z53.29 Procedure and treatment not carried out because of patient's decision for other reasons; I10 Essential (primary) hypertension; Z85.028 Personal history of other malignant neoplasm of stomach; Z79.899 Other long term (current) drug therapy
CPT/HCPCS: 36415; 80048; 80053; 85025; 93005; 96365; 96375; G0378